=== PATIENT | male | born 1965 ===

== ENCOUNTER 2019-07-21 21:27 | Outpatient (REF) | payer BC, SELFPAY ==
[2019-07-21 22:01] LABS: Calculated LDL 109 mg/dL (<100); Cholesterol 164 mg/dL (<200); HDL Cholesterol 49 mg/dL (40-60); Triglyceride 33 mg/dL (<150)
== END 2019-07-21 21:47 ==
LOC: NCHCN 21:27
PROVIDERS: Visit Provider Nurse Practitioner Community Health
DX: Z82.49 Family history of ischemic heart disease and other diseases of the circulatory system (principal); Z13.220 Encounter for screening for lipoid disorders
CPT/HCPCS: 80061

== ENCOUNTER 2020-01-16 11:58 | Outpatient (REF) | payer BC, SELFPAY ==
[2020-01-19 04:07] LABS: SARS-CoV-2 RNA Undetected (Undetected); SARS-CoV-2 Specimen Source Nasal
== END 2020-01-16 12:18 ==
LOC: NCHCN 11:58
PROVIDERS: PCP Nurse Practitioner Community Health; Visit Provider Nurse Practitioner Community Health
DX: Z20.828 Contact with and (suspected) exposure to other viral communicable diseases (principal)
CPT/HCPCS: U0003

== ENCOUNTER 2020-10-18 21:27 | Outpatient (REF) | payer BC, SELFPAY ==
[2020-10-19 17:18] LABS: PSA, Screening 2.1 ng/mL (0.0-3.5)
== END 2020-10-18 21:28 | disposition home or self-care (01) ==
LOC: NCHCN 21:27
PROVIDERS: PCP Nurse Practitioner Community Health; Visit Provider Internal Medicine
DX: R39.9 Unspecified symptoms and signs involving the genitourinary system (principal); Z12.5 Encounter for screening for malignant neoplasm of prostate
CPT/HCPCS: 84153

== ENCOUNTER 2021-07-29 18:39 | Outpatient (REF) | payer BC, SELFPAY ==
[2021-07-29 21:02] LABS: HCT 43.4 % (40.0-50.0); HGB 14.6 g/dL (13.5-17.5); MCH 31.3 pg (27.0-33.0); MCHC 33.6 % (32.0-36.0); MCV 93 fL (80-95); MPV 10.9 fL (8.0-11.0); Platelet Count 266 10^3/uL (130-400); RBC 4.67 10^6/uL (4.36-5.78); RDW 12.4 % (11.8-14.1); RDW-SD 42.7 fL; WBC 5.55 10^3/uL (4.4-10.8)
[2021-07-29 21:15] LABS: Calculated LDL 104 mg/dL (<100); Cholesterol 168 mg/dL (<200); Glucose 97 mg/dL (74-106); HDL Cholesterol 49 mg/dL (40-60); Triglyceride 79 mg/dL (<150)
== END 2021-07-29 18:40 | disposition home or self-care (01) ==
LOC: NCHCN 18:39
PROVIDERS: PCP Nurse Practitioner Community Health; Visit Provider Nurse Practitioner Family
DX: R30.0 Dysuria (principal); R39.89 Other symptoms and signs involving the genitourinary system; Z13.220 Encounter for screening for lipoid disorders; Z13.1 Encounter for screening for diabetes mellitus; Z12.5 Encounter for screening for malignant neoplasm of prostate
CPT/HCPCS: 80061; 82947; 84153; 85027